=== PATIENT | female | born 1950 | race Caucasian/White ===

== ENCOUNTER 2018-01-09 18:52 | Emergency (ER) | payer MEDICARE, OTHER ==
--- OUTSIDE RECORDS SUMMARY | 2018-01-09 19:36 | XMS REPORT ---
:1950 External Reference #:[id number] Author Organization [facility] Address [address] [place] [address] Phone [phone] Care Team Providers Name Role Phone HCP given Primary Care Physician Unavailable Payers Type Date Identification Numbers Payment Provider Subscriber Medicare Primary Effective: Policy Number: [facility] Angelina Rutherford 2016 [id number] Services PayID: [id number] [address] [place] [address] Medigap Part B Effective: Policy Number: Suleiman Alfaro 2014 [id number] Ind/Ppo/Hmo/Pos Gerrity PayID: [id number] [address] [address] [place] [address] Problems Date Description Provider Status Onset: 01/04/2017 Traumatic brain injury Abel Howe D.O. 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 Cigarette Use Denies Cigarette Use ETOH Use Denies alcohol use Smoking Patient has never smoked Recreational Drug Use Never Used Drugs Exercise Type/Frequency Exercises regularly Sun Exposure Does not use sunscreen Seat Belt/Car Seat Seat Belt Use - Yes Age 1st [place] 17 Years Old Allergies, Adverse Reactions, Alerts Date Description Reaction Status Severity Comments 01/04/2017 Tetanus active anaphylaxis 01/04/2017 Penicillin active anaphylaxis 01/04/2017 Gluten active Medications Medication Date Status Form Strength Qnty SIG Indications Ordering Provider Symbicort 01/04 Active Aerosol 80-4.5mcg 6.900 2 inhalation R06.02 [place]ff /Act gm twice a day for Roderick asthma control M.D. Omeprazole 01/04 Active Capsules 20mg 30cap 1 every day [address] espinosa minutes before Roderick morning meal M.DSmooth for abd discomfort Vitamin D3 01/03 Active 1 po daily Vitamin K 01/03 Active 1 po daily Magnesium 01/03 Active Powder 1/2 tsp daily Unknown Phosphate Dibasic Trihydrate Senior 01/03 Active Tablets daily Unknown Multivitamin Vitamin B12 01/03 Active Tablets 1000mcg take 1 ER sublingual tablet daily Fish Oil 01/03 Active Capsules 1000mg take one capsule by mouth every day (supplement) Evening 01/03 Active Capsules 500mg daily Unknown Encinal Oil Acidophilus 01/03 Active Capsules 1 by mouth every day Forteo 04/25 Hx Solution 600mcg/2. 2.400 Administer 0.08 M81.0 [facility], 4ML ml ml Abel, - subcutaneously D.O. 01/03 daily for osteoporosis Lecithin 03/12 Hx as directed - 01/03 Vital Signs Date Vital Result Comment 01/08/2018 BP Systolic 110 mmHg BP Diastolic 60 mmHg Weight 115.00 lb with sneakers 01/04/2018 BP Systolic 108 mmHg BP Diastolic 54 mmHg Heart Rate 68 /min O2 % BldC Oximetry 95 % after resting 1-2 min w/o talking Body Temperature 97.7 F Weight 115.00 lb 04/25/2017 BP Systolic 110 mmHg BP Diastolic 58 mmHg Height 60 inches 5'0" Weight 112.00 lb BMI (Body Mass Index) 21.9 kg/m2 03/13/2017 BP Systolic 100 mmHg BP Diastolic 50 mmHg Height 60 inches 5'0" Weight 112.00 lb BMI (Body Mass Index) 21.9 kg/m2 01/04/2017 BP Systolic 100 mmHg BP Diastolic 60 mmHg Height 61 inches 5'1" with sneakers Weight 115.00 lb with sneakers BMI (Body Mass Index) 21.7 kg/m2 Results Test Date Test Result H/L Range Note CBC Auto Diff 03/22/2017 White Blood Count 4.9 10^3/uL 3.5-10.8 Red Blood Count 4.09 10^6/uL 4.0-5.4 Hemoglobin 13.1 g/dL 12.0-16.0 Hematocrit 39 % 35-47 Mean Corpuscular Volume 96 fL 80-97 Mean Corpuscular Hemoglobin 32 pg High 27-31 Mean Corpuscular HGB Conc 34 g/dL 31-36 Red Cell Distribution Width 13 % 10.5-15 Platelet Count 177 10^3/uL 150-450 Mean Platelet Volume 9 um3 7.4-10.4 Abs Neutrophils 1.8 10^3/uL 1.5-7.7 Abs Lymphocytes 2.6 10^3/uL 1.0-4.8 Abs Monocytes 0.4 10^3/uL 0-0.8 Abs Eosinophils 0.1 10^3/uL 0-0.6 Abs Basophils 0 10^3/uL 0-0.2 Abs Nucleated RBC 0 10^3/uL Granulocyte % 36.9 % Low 38-83 Lymphocyte % 52.5 % High 25-47 Monocyte % 8.3 % 1-9 Eosinophil % 1.4 % 0-6 Basophil % 0.9 % 0-2 Nucleated Red Blood Cells % 0 Comp Metabolic Panel 03/22/2017 Sodium 139 mmol/L 133-145 Potassium 4.2 mmol/L 3.5-5.0 Chloride 106 mmol/L 101-111 Co2 Carbon Dioxide 28 mmol/L 22-32 Anion Gap 5 mmol/L 2-11 Glucose 86 mg/dL 70-100 Blood Urea Nitrogen 11 mg/dL 6-24 Creatinine 0.63 mg/dL 0.51-0.95 BUN/Creatinine Ratio 17.5 8-20 Calcium 9.1 mg/dL 8.6-10.3 Total Protein 6.4 g/dL 6.4-8.9 Albumin 3.7 g/dL 3.2-5.2 Globulin 2.7 g/dL 2-4 Albumin/Globulin Ratio 1.4 1-3 Total Bilirubin 0.50 mg/dL 0.2-1.0 Alkaline Phosphatase 45 U/L 34-104 Alt 13 U/L 7-52 Ast 18 U/L 13-39 Egfr Non- 94.5 >60 Egfr 121.6 >60 1 Laboratory test finding 03/22/2017 TSH (Thyroid Stim Horm) 1.48 mcIU/mL 0.34-5.60 2 Vitamin D Total 25(Oh) 33.9 ng/mL 30-50 3 Lipid Profile (Trig/Chol/HDL) 03/22/2017 Triglycerides 84 mg/dL 4 Cholesterol 179 mg/dL 5 HDL Cholesterol 44.0 mg/dL 6 LDL Cholesterol 118 mg/dL 7 Laboratory test finding 03/22/2017 Hepatitis C Antibody Nonreactive Nonreactive 8 1 Because ethnic data is not always readily available, this report includes an eGFR for both -Americans and non- Americans. The National Kidney Disease Education Program (NKDEP) does not endorse the use of the MDRD equation for patients that are not between the ages of 18 and 70, are , have extremes of body size, muscle mass, or nutritional status, or are non- or non-. According to the National Kidney Foundation, irrespective of diagnosis, the stage of the disease is based on the level of kidney function: Stage Description GFR(mL/min/1.73 m(2)) 1 Kidney damage with normal or decreased GFR 90 2 Kidney damage with mild decrease in GFR 60-89 3 Moderate decrease in GFR 30-59 4 Severe decrease in GFR 15-29 5 Kidney failure <15 (or dialysis) 2 FASTING 12 HOUR 3 FASTING 12 HOUR 4 Desirable <150 Borderline high 150-199 High 200-499 Very High >500 5 Desirable <200 Borderline high 200-239 High >239 6 Low <40 Desirable: 40-60 High: >60 7 Desirable: <100 mg/dL Near Optimal: 100-129 mg/dL Borderline High: 130-159 mg/dL High: 160-189 mg/dL Very High: >189 mg/dL 8 FASTING 12 HOUR Procedures Date CPT Code Description Status Comment 01/04/2018 18986 Spirometry Completed 01/04/2018 36916 Electrocardiogram Complete Completed 08/18/2017 Mammogram Completed 2017:probably benign, left breast 6m fu done, also probably benign, next fu in 6m due in February 2018 04/25/2017 09662 Dexa Bone Density Study One Or Completed More Sites Axial Skeleton 09/18/2011 Colonoscopy Completed 06/25/2008 Colonoscopy Completed 2 hyperplastic polyps. Encounters Type Date Location Provider CPT E/M Dx Office Visit 01/04/2018 10:20a Main Office Justin Martel 21602 R06.02 R07.89 K21.9 Z63.79 R10.11 J37.0 Office Visit 04/25/2017 2:30p Main Office Abel Howe D.O. 34373 M81.0 Z13.820 Z78.0 Office Visit 01/04/2017 1:30p Main Office Abel Howe D.O. 34289 Z87.820 H53.2 Plan of Care Future Appointment(s):03/29/2018 2:00 pm - Abel Howe D.O. at Main Rozlfw6401/08/2018 - Justin MartelK21.9 Gastro-esophageal reflux disease without esophagitisFollow up:labs here at your convenience hrs: 8:30-4:00 we will be in touch about schedule the [place]. that can be at [facility]: Tho will be in touch one way or the omiogJ28.02 Shortness of breathComments: cont this med as recommended for one monthdiscussed SE's and benefits of inh hhimvhxfB16.11 Right upper quadrant painNew Xrays:ultrasound abdomen, limited
[2018-01-09 20:39] VITALS: BP 115/99
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
== END 2018-01-09 20:38 | disposition home or self-care (01) ==
LOC: ED 18:52
DX: R06.02 Shortness of breath (principal); M54.2 Cervicalgia; T47.1X5A Adverse effect of other antacids and anti-gastric-secretion drugs, initial encounter; Y92.9 Unspecified place or not applicable; K59.00 Constipation, unspecified; K21.9 Gastro-esophageal reflux disease without esophagitis; Z88.0 Allergy status to penicillin; Z88.7 Allergy status to serum and vaccine
CPT/HCPCS: 99282

== ENCOUNTER 2018-02-08 13:25 | Emergency (ER) | payer MEDICARE, OTHER ==
--- OUTSIDE RECORDS SUMMARY | 2018-02-08 13:36 | XMS REPORT ---
:1950 External Reference #:[id number] Author Organization [facility] Address [address] [place] [address] Phone [phone] Care Team Providers Name Role Phone Abel Howe DO Primary Care Physician Unavailable Payers Type Date Identification Numbers Payment Provider Subscriber Medicare Primary Policy Number: [id number] Medicare-[facility] Govn Angelina Rutherford [employer]VS PayID: [id number] [address] [place] [address] Medinorthrop Part B Policy Number: [id number] [employer] Angelina Rutherford [employer] PayID: [id number] [address] [place] [address] Problems Description No Information Family History Date Family Member(s) Problem(s) Comments General Cancer General Heart Attack General Emphysema General Cerebral Hemorrhage Father Cancer Mother Cerebral Hemorrhage and aunt Social History Type Date Description Comments Occupation Retired Cigarette Use Never Smoked Cigarettes Cigars Never Smoked Cigars Pipe Former Pipe Smoker Smokeless Tobacco Never Used Smokeless Tobacco ETOH Use Denies alcohol use Allergies, Adverse Reactions, Alerts Date Description Reaction Status Severity Comments 01/05/2018 Tetanus active 01/05/2018 Penicillin active 01/05/2018 Gluten active Medications Medication Date Status Form Strength Qnty SIG Indications Ordering Provider Omeprazole Active Capsules DR 20mg [place] 000 P.A., Anton[place]eta Symbicort Active Aerosol 80-4.5mcg/ 2 puffs [place] 000 Act 2x a day Abel JIMENEZ with spacer [place] 3 500 Active Capsules 500mg Self 000 [place] Active Self 000 K2 Plus D3 Active Tablets 100-1000mc Self 000 g-Unit Vitamin B Active Injection 100 Self Complex 100 000 Acidophilus Active Capsules daily Self 000 Traumeel Active Ointment Self 000 Vital Signs Date Vital Result Comment 01/05/2018 Weight 116.00 lb Weight in kg's 52.618 Height 60 inches 5'0" Height in cm's 152.4 cm BMI (Body Mass Index) 22.7 kg/m2 Results Description No Information Procedures Date CPT Code Description Status 01/05/2018 85402 Fiberoptic Laryngoscopy Completed Encounters Type Date Location Provider CPT E/M Dx Office Visit 01/05/2018 11:45a [place],After 09/18/07 [place] [address] R06.1 S12.8xxD R49.8 Plan of Care Future Appointment(s):02/05/2018 9:45 am - Oz Anne MD at [place],[facility] - Oz Anne, MDR06.1 LstbjgoU48.8xxD Fracture of other parts of neck, subsequent encounterComments:She has had a long-standing history of fracture of her larynx, most likely the subglottic narrowing is relatively stable there's no inflammatory changes. She may have reactive airway disease or some form of mild pulmonary dysfunction that may improve with topical inhaled bronchodilator steroid combination which she has been prescribed I suggest she take it for 2 months. And recheck back with us. If there is no improvement I think a CT of the neck would be helpful to see if any surgical intervention would improve her airway. If this is in fact causing her symptoms.R49.8 Other voice and resonance disorders
--- OUTSIDE RECORDS SUMMARY | 2018-02-08 13:36 | XMS REPORT ---
:1950 External Reference #:[id number] Author Organization [facility] Address [address] [place] [address] Phone [phone] Care Team Providers Name Role Phone Abel Howe DO Primary Care Physician Unavailable Payers Type Date Identification Numbers Payment Provider Subscriber Medicare Primary Policy Number: [id number] [place] [employer] Angelina Rutherford [employer] PayID: [id number] [address] [place] [address] Medigap Part B Policy Number: [id number] [place] [employer] Angelina Rutherford Accident PayID: [id number] [address] [place] [address] Problems Date Description Provider Status Onset: 02/05/2018 Fracture of other parts of neck, Oz Anne MD Active subsequent encounter Onset: 02/05/2018 Stridor Oz Anne MD Active Family History Date Family Member(s) Problem(s) [...] Ordering Provider Omeprazole Active Capsules DR 20mg [place] 000 P.A., Antonieta Symbicort Active Aerosol 80-4.5mcg/ 2 puffs [place] 000 Act 2x a day Abel JIMENEZ with spacer [place] 3 500 Active Capsules 500mg Self 000 [place] Active Self 000 K2 Plus D3 Active Tablets 100-1000mc Self 000 g-Unit Vitamin B Active Injection 100 Self Complex 100 000 Acidophilus Active Capsules daily Self 000 [place] Active Ointment Self 000 Vital Signs Date Vital Result Comment 02/05/2018 Weight 111.00 lb Weight in kg's 50.350 Height 60 inches 5'0" Height in cm's 152.4 cm BMI (Body Mass Index) 21.7 kg/m2 01/05/2018 Weight 116.00 lb Weight in kg's 52.618 Height 60 inches 5'0" Height in cm's 152.4 cm BMI (Body Mass Index) 22.7 kg/m2 Results Description No Information Procedures Date CPT Code Description Status 01/05/2018 67466 Fiberoptic Laryngoscopy Completed Encounters Type Date Location Provider CPT E/M Dx Office Visit 02/05/2018 9:45a [facility],After 09/18/07 [place] [address] R06.1 S12.8xxD Office Visit 01/05/2018 11:45a [facility],After 09/18/07 [place] [address] R06.1 S12.8xxD R49.8 Plan of Care 02/05/2018 - Oz Anne MDR06.1 StridorComments:Patient with continuing symptoms of stridor and hoarseness. 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
[2018-02-08 13:45] VITALS: BP 109/56
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
== END 2018-02-08 14:44 | disposition home or self-care (01) ==
LOC: UCEAST 13:25
DX: Z03.89 Encounter for observation for other suspected diseases and conditions ruled out (principal); Z88.0 Allergy status to penicillin; Z91.018 Allergy to other foods; Z88.7 Allergy status to serum and vaccine; Z91.048 Other nonmedicinal substance allergy status
CPT/HCPCS: 99211; G0463

== ENCOUNTER 2022-11-09 08:50 | Observation (INO) ==
[2022-11-09 09:18] LABS: ABS Eosinophils 0.1 10^3/ul (0-0.6); ABS Monocytes 0.3 10^3/ul (0-0.8); ABS Neutrophils 1.9 10^3/ul (1.5-7.7); Eosinophil % 1.6 %; Hematocrit 43 % (35-47); Hemoglobin 14.1 g/dL (12.0-16.0); Lymphocyte % 46.1 %; Mean Corpuscular HGB Conc 33 g/dL (31-36); Mean Corpuscular Hemoglobin 32 pg (27-31); Mean Corpuscular Volume 96 fL (80-97); Mean Platelet Volume 8.4 fL (7.4-10.4); Nucleated Red Blood Cells % 0.1; Platelet Count 186 10^3/uL (150-450); Red Blood Count 4.48 10^6 /uL (3.70-4.87); Red Cell Distribution Width 13 % (10-15); White Blood Count 4.3 10^3/uL (3.5-10.8)
[2022-11-09] MEDS ORDERED: Iodixanol (CONTRAST) 320 MG/ML 100 ML SDV IV ONE (09:27)
[2022-11-09 09:31] LABS: Activated Partial Thrombo Time 31.1 seconds (26.0-38.0)
[2022-11-09] MEDS ORDERED: NS 0.9% 1000 ml BAG 1,000 ML IV ONE ×2 (09:37→12:10)
[2022-11-09 09:59] LABS: ALT 15 U/L (7-52); AST 19 U/L (13-39); Albumin 4.3 g/dL (3.2-5.2); Albumin/Globulin Ratio 1.7 (1-3); Alkaline Phosphatase 61 U/L (35-149); Anion Gap 5 mmol/L (2-11); Blood Urea Nitrogen 13 mg/dL (6-24); CO2 Carbon Dioxide 26 mmol/L (22-32); Calcium 9.3 mg/dL (8.6-10.3); Chloride 108 mmol/L (101-111); Cholesterol 182 mg/dL; Globulin 2.6 g/dL (2-4); Glucose 93 mg/dL (70-100); Sodium 139 mmol/L (135-145); Total Protein 6.9 g/dL (6.4-8.9)
[2022-11-09 11:42] LABS: Creatinine, Serum 0.68 mg/dL (0.51-0.95); eGFR CKD-EPI 93.1 (>60)
[2022-11-09 11:51] LABS: Urine Appearance Clear; Urine Bilirubin Negative (Negative); Urine Blood Negative (Negative); Urine Color Yellow; Urine Glucose Negative (Negative); Urine Ketones Trace (Negative); Urine Nitrite Negative (Negative); Urine Protein Negative (Negative); Urine Urobilinogen Negative (Negative)
[2022-11-09 11:56] LABS: High Sensitivity Troponin 1 Hr 5 pg/mL (<15)
[2022-11-09 12:01] LABS: C Reactive Protein < 1.00 mg/L (<8.01); HDL Cholesterol 46.8 mg/dL; LDL Cholesterol 119 mg/dL; Triglycerides 81 mg/dL
[2022-11-09] MEDS ORDERED: Polyethyl Glycol/Propylene Gly OPHTH.SOLN BOTH EYES PRN (12:11)
[2022-11-09] MEDS ORDERED: CYANOCOBALAMIN 1000 MCG SL SCH (12:15)
[2022-11-09 12:39] LABS: TSH Ultra Thyroid Stim Horm 2.88 mcIU/mL (0.34-5.60)
[2022-11-09 12:50] LABS: Vitamin B12 > 1450 pg/mL (180-914)
[2022-11-09] MEDS ORDERED: Sodium Chloride 5% OPTH.SOL 15 ML BTL BOTH EYES SCH (21:00)
[2022-11-09] MEDS ORDERED: Enoxaparin 30 MG/0.3 ML SYR SUBCUT SCH (21:00)
[2022-11-10] MEDS: Sodium Chloride 5% OPTH.SOL 15 ML BTL BOTH EYES SCH ×2 (09:17→09:24)
[2022-11-10 18:04] VITALS: BP 118/71
[2022-11-10] MEDS ORDERED: [UNRECOGNIZED DRUG - OTHER] BOTH EYES SCH (21:00)
[2022-11-10] MEDS ORDERED: SODIUM CHLORIDE 5% BOTH EYES SCH (21:00)
== END 2022-11-10 17:09 | disposition home or self-care (01) ==
LOC: EDHOLD 08:50 → ED 08:50 → SUATTDRO 10:49 → EDHOLD 16:01 → MEDTELE 16:07
PROVIDERS: ADMIT Internal Medicine; ATTEND Hospitalist